=== PATIENT | female | born 1995 | race Caucasian/White ===

== ENCOUNTER 2022-01-27 07:09 | Outpatient (CLI) | payer BC, SELFPAY ==
[2022-01-27 07:32] LABS: Basophils Absolute Auto 0.04 K/mm3 (0.00-0.10); Basophils Percent Auto 0.5 % (0.0-1.0); Eosinophils Absolute Auto 0.06 K/mm3 (0.02-0.50); Eosinophils Percent Auto 0.8 % (1.0-6.0); Hematocrit 44.8 % (35.0-49.0); Hemoglobin 15.4 g/dL (12.0-15.0); Immature Granulocyte Absolute 0.01 K/mm3 (0.00-0.00); Immature Granulocyte Percent A 0.1 % (0.0-0.0); Lymphocytes Percent Auto 35.7 % (18.0-42.0); Mean Corpuscular HGB Conc 34.4 g/dL (32.0-36.0); Mean Corpuscular Volume 96.1 fL (78.0-102.0); Mean Platelet Volume 10.2 fl (9.2-11.8); Monocytes Absolute Auto 0.36 K/mm3 (0.10-0.90); Monocytes Percent Auto 4.9 % (2.0-11.0); Neutrophils Absolute Auto 4.2 K/mm3 (1.7-7.2); Platelet Count Result 248 K/mm3 (150-420); Red Blood Count 4.66 M/mm3 (4.20-5.40); Red Cell Distribution Width 11.8 % (11.6-14.4); White Blood Count 7.3 K/mm3 (4.8-10.8)
[2022-01-27 07:49] LABS: Hemoglobin A1C 5.3 % (<5.7)
[2022-01-27 08:17] LABS: Alanine Aminotransferase 25 U/L (14-59); Alkaline Phosphatase 39 U/L (46-116); Anion Gap 10 mmol/L (8-16); Aspartate Amino Transferase 11 U/L (15-37); Bilirubin,Total 0.6 mg/dL (0.00-1.00); Blood Urea Nitrogen 14 mg/dL (7-18); Calcium 9.1 mg/dL (8.5-10.1); Carbon Dioxide 25 mmol/L (21-32); Chloride 102 mmol/L (98-108); Cholesterol 204 mg/dL (0-200); Estimated Glomerular Filt Rate > 60; Glucose 92 mg/dL (70-99); HDL Direct 51 mg/dL (40-60); LDL Cholesterol Calculated 130 mg/dL (<130); Osmolality Calculated 284 mOsm/kg (285-295); Potassium 3.4 mmol/L (3.5-5.1); Sodium 137 mmol/L (136-145); Thyroid Stimulating Hormone 3.09 uIU/mL (0.36-3.74); Triglycerides 114 mg/dL (0-150)
[2022-02-01 20:08] LABS: Vitamin D 25 Hydroxy 57 ng/mL (30-100)
== END 2022-01-27 07:10 | disposition home or self-care (01) ==
LOC: CHSLAB 07:12
PROVIDERS: PCP Nurse Practitioner; Visit Provider Nurse Practitioner
DX: Z00.00 Encounter for general adult medical examination without abnormal findings (principal); Z13.6 Encounter for screening for cardiovascular disorders; Z13.21 Encounter for screening for nutritional disorder; Z13.220 Encounter for screening for lipoid disorders; Z13.29 Encounter for screening for other suspected endocrine disorder
CPT/HCPCS: 36415; 80053; 80061; 82306; 83036; 84443; 85025

== ENCOUNTER 2022-07-12 16:33 | Outpatient (CLI) | payer BC, SELFPAY | END 2022-07-12 16:34 | disposition home or self-care (01) | LOC: CHSLAB 16:35 | PROVIDERS: PCP Internal Medicine; Visit Provider Specialist | DX: D22.5 Melanocytic nevi of trunk (principal) | CPT/HCPCS: 88305; 88342 ==

== ENCOUNTER 2023-01-30 06:53 | Outpatient (CLI) | payer BC, SELFPAY ==
[2023-01-30 09:04] LABS: Alanine Aminotransferase 25 U/L (14-59); Albumin Level 3.9 g/dL (3.4-5.0); Alkaline Phosphatase 37 U/L (46-116); Anion Gap 10 mmol/L (8-16); Aspartate Amino Transferase 25 U/L (15-37); Bilirubin,Total 0.7 mg/dL (0.00-1.00); Blood Urea Nitrogen 9 mg/dL (7-18); Calcium 8.9 mg/dL (8.5-10.1); Carbon Dioxide 26 mmol/L (21-32); Chloride 104 mmol/L (98-108); Cholesterol 188 mg/dL (0-200); Estimated Glomerular Filt Rate > 60; Glucose 89 mg/dL (70-99); HDL Direct 63 mg/dL (40-60); Osmolality Calculated 287 mOsm/kg (285-295); Sodium 140 mmol/L (136-145); Total Protein 7.5 g/dL (6.4-8.2)
[2023-01-30 10:01] LABS: Hemoglobin A1C 4.7 % (<5.7)
[2023-01-30 10:02] LABS: LDL Cholesterol Calculated 108 mg/dL (<130); Triglycerides 85 mg/dL (0-150)
[2023-02-06 16:56] LABS: Vitamin D 25 Hydroxy 53 ng/mL (30-100)
== END 2023-01-30 06:54 | disposition home or self-care (01) ==
LOC: CHSLAB 06:56
PROVIDERS: PCP Nurse Practitioner; Visit Provider Nurse Practitioner
DX: Z13.1 Encounter for screening for diabetes mellitus (principal); Z13.21 Encounter for screening for nutritional disorder; E55.9 Vitamin D deficiency, unspecified; Z13.6 Encounter for screening for cardiovascular disorders; Z13.220 Encounter for screening for lipoid disorders
CPT/HCPCS: 36415; 80053; 80061; 82306; 83036

== ENCOUNTER 2024-02-01 06:52 | Outpatient (CLI) | payer BC, SELFPAY ==
[2024-02-01 07:12] LABS: Basophils Absolute Auto 0.04 K/mm3 (0.00-0.10); Basophils Percent Auto 0.5 % (0.0-1.0); Eosinophils Absolute Auto 0.15 K/mm3 (0.02-0.50); Hematocrit 44.7 % (35.0-49.0); Immature Granulocyte Absolute 0.02 K/mm3 (0.00-0.00); Immature Granulocyte Percent A 0.3 % (0.0-0.0); Lymphocytes Percent Auto 27.9 % (18.0-42.0); Mean Corpuscular HGB Conc 33.6 g/dL (32-36); Mean Corpuscular Hemoglobin 31.8 pg (27.0-31.0); Mean Corpuscular Volume 94.7 fL (78.0-102.0); Mean Platelet Volume 9.8 fl (9.2-11.8); Monocytes Absolute Auto 0.28 K/mm3 (0.10-0.90); Monocytes Percent Auto 3.7 % (2.0-11.0); Neutrophils Absolute Auto 4.93 K/mm3 (1.70-7.20); Neutrophils Percent Auto 65.6 % (50.0-70.0); Platelet Count Result 249 K/mm3 (150-420); Red Blood Count 4.72 M/mm3 (4.20-5.40); Red Cell Distribution Width 11.5 % (11.6-14.4); White Blood Count 7.5 K/mm3 (4.8-10.8)
[2024-02-01 07:38] LABS: Alanine Aminotransferase 27 U/L (14-59); Albumin Level 3.8 g/dL (3.4-5.0); Alkaline Phosphatase 34 U/L (46-116); Anion Gap 9 mmol/L (4-12); Aspartate Amino Transferase 22 U/L (15-37); Bilirubin,Total 0.9 mg/dL (0.00-1.00); Blood Urea Nitrogen 12 mg/dL (7-18); Calcium 8.8 mg/dL (8.5-10.1); Carbon Dioxide 27 mmol/L (21-32); Chloride 102 mmol/L (98-108); Cholesterol 217 mg/dL (0-200); Estimated Glomerular Filt Rate > 60; Glucose 89 mg/dL (70-99); HDL Direct 56 mg/dL (40-60); LDL Cholesterol Calculated 137 mg/dL (<130); Osmolality Calculated 284 mOsm/kg (285-295); Potassium 3.8 mmol/L (3.5-5.1); Sodium 138 mmol/L (136-145); Total Protein 7.5 g/dL (6.4-8.2); Triglycerides 118 mg/dL (0-150)
== END 2024-02-01 06:53 | disposition home or self-care (01) ==
LOC: CHSLAB 06:55
PROVIDERS: PCP Family Medicine; Visit Provider Nurse Practitioner Family
DX: Z00.00 Encounter for general adult medical examination without abnormal findings (principal)
CPT/HCPCS: 36415; 80053; 80061; 83036; 85025

== ENCOUNTER 2024-12-10 06:50 | Outpatient (CLI) | payer OTHER, SELFPAY ==
[2024-12-10 07:08] LABS: Basophils Absolute Auto 0.06 K/mm3 (0.00-0.10); Basophils Percent Auto 0.9 % (0.0-1.0); Eosinophils Absolute Auto 0.14 K/mm3 (0.02-0.50); Hemoglobin 14.3 g/dL (12.0-15.0); Immature Granulocyte Absolute 0.02 K/mm3 (0.00-0.00); Immature Granulocyte Percent A 0.3 % (0.0-0.0); Lymphocytes Absolute Auto 2.42 K/mm3 (1.10-4.50); Lymphocytes Percent Auto 34.6 % (18.0-42.0); Mean Corpuscular Hemoglobin 32.2 pg (27.0-31.0); Mean Corpuscular Volume 94.6 fL (78.0-102.0); Monocytes Absolute Auto 0.34 K/mm3 (0.10-0.90); Monocytes Percent Auto 4.9 % (2.0-11.0); Neutrophils Absolute Auto 4.02 K/mm3 (1.70-7.20); Neutrophils Percent Auto 57.3 % (50.0-70.0); Platelet Count Result 245 K/mm3 (150-420); Red Blood Count 4.44 M/mm3 (4.20-5.40); Red Cell Distribution Width 11.6 % (11.6-14.4)
[2024-12-10 07:27] LABS: Hemoglobin A1C 5.2 % (<5.7)
[2024-12-10 07:53] LABS: Alanine Aminotransferase 25 U/L (14-59); Albumin Level 3.5 g/dL (3.4-5.0); Alkaline Phosphatase 47 U/L (46-116); Anion Gap 8 mmol/L (4-12); Aspartate Amino Transferase 19 U/L (15-37); Bilirubin,Total 0.4 mg/dL (0.00-1.00); Blood Urea Nitrogen 10 mg/dL (7-18); Calcium 8.7 mg/dL (8.5-10.1); Carbon Dioxide 26 mmol/L (21-32); Chloride 104 mmol/L (98-108); Cholesterol 171 mg/dL (0-200); Estimated Glomerular Filt Rate > 60; Glucose 89 mg/dL (70-99); HDL Direct 48 mg/dL (40-60); LDL Cholesterol Calculated 108 mg/dL (<130); Osmolality Calculated 284 mOsm/kg (285-295); Potassium 3.9 mmol/L (3.5-5.1); Sodium 138 mmol/L (136-145); Triglycerides 77 mg/dL (0-150)
== END 2024-12-10 06:51 | disposition home or self-care (01) ==
PROVIDERS: PCP Nurse Practitioner Family; Visit Provider Nurse Practitioner Family
DX: Z00.00 Encounter for general adult medical examination without abnormal findings (principal)
CPT/HCPCS: 36415; 80053; 80061; 83036; 85025